=== PATIENT | male | born 1945 | race Caucasian/White ===

== ENCOUNTER 2016-09-21 23:26 | Emergency (ER) | payer MEDICARE, BC ==
[~2016-09-21 23:26] MED LIST: ASAB PO; COZ50 PO; IBU-200200 MG PO; NORCO1 TA1 PO; OXYCON10 PO; PCET PO; PRAVAC PO; V5 PO; ZIAC5 PO
[2016-09-22 01:14] LABS: BUN (BLOOD UREA NITROGEN) 18 MG/DL (6-23); CALCIUM, SERUM 8.8 MG/DL (8.5-10.4); CHLORIDE, SERUM 104 MMOL/L (96-112); CO2 (CARBON DIOXIDE) 27 MMOL/L (24-34); CREATININE 1.08 MG/DL (0.70-1.30); GFR AFRICAN AMERICAN 78 ML/MIN (>=60); GFR NON AFRICAN AMERICAN 68 ML/MIN (>=60); POTASSIUM, SERUM 4.1 MMOL/L (3.5-5.3); SODIUM, SERUM 140 MMOL/L (135-148)
[2016-09-22 01:16] LABS: GLUCOSE, SERUM 141 MG/DL (60-99)
[2016-09-22 01:51] LABS: ASCORBIC ACID (UR NOT ORDER) NEG (NEG); BILIRUBIN, URINE NEGATIVE (NEG); ER URINALYSIS TAT 0 Hrs 15 Mins; KETONE, URINE NEGATIVE (NEG); LEUKOCYTE ESTERASE(NOT OR SMALL (NEG); NITRITE (URINE) NEG (NEG); WBC (NOT ORDERED) (RFLEX) 14 (0-5)
== END 2016-09-22 01:39 | disposition home or self-care (01) ==
LOC: ER 23:26
PROVIDERS: Emergency Medicine
DX: R33.9 Retention of urine, unspecified (principal); R35.0 Frequency of micturition; I10 Essential (primary) hypertension
CPT/HCPCS: 80048; 81001; 87086; 99283

== ENCOUNTER 2016-12-21 05:32 | Inpatient (IN) | payer MEDICARE, BC ==
[2016-12-13 11:13] LABS: BASOPHILS 0.4 %; BASOPHILS ABSOLUTE 0.03 10/3/uL (0.0-0.16); EOSINOPHILS 2.4 %; EOSINOPHILS ABSOLUTE 0.19 10/3/uL (0.0-0.53); HEMATOCRIT 35.8 % (40.0-51.0); HEMOGLOBIN 11.3 g/dL (13.6-17.8); IMMATURE GRANULOCYTES 0.3 %; IMMATURE GRANULOCYTES ABSOLUTE 0.02 10/3/uL (0.0-0.11); LYMPHOCYTES 22.2 %; LYMPHOCYTES ABSOLUTE 1.76 10/3/uL (0.67-4.30); MANUAL DIFF NO %; MEAN CORPUS HGB CONC 31.6 g/dL (32.0-36.0); MEAN CORPUSCULAR HEMOGLOB 26.7 pg (26.0-34.0); MEAN CORPUSCULAR VOLUME 84.6 fL (80-100); MEAN PLATELET VOLUME 8.7 fL (9.2-13.0); MONOCYTES ABSOLUTE 1.19 10/3/uL (0.21-1.20); NEUTROPHILS 59.7 %; NEUTROPHILS ABSOLUTE 4.73 10/3/uL (2.02-8.40); PLATELET COUNT 370 10/3/uL (150-400); RED CELL COUNT 4.23 10/6/uL (4.7-6.1); WHITE BLOOD CELLS 7.9 10/3/uL (4.5-10.5)
[2016-12-13 11:22] LABS: INTERNATIONAL NORMAL RATI 1.1 UNITS (-); PARTIAL THROMBO TIME 30.4 SEC (22.5-37.2); PROTIME (NOT ORD) 13.8 SEC (12.0-14.5)
[2016-12-13 11:37] LABS: BUN (BLOOD UREA NITROGEN) 19 MG/DL (6-23); CALCIUM, SERUM 9.7 MG/DL (8.5-10.4); CHLORIDE, SERUM 105 MMOL/L (96-112); CO2 (CARBON DIOXIDE) 29 MMOL/L (24-34); GFR AFRICAN AMERICAN 86 ML/MIN (>=60); GFR NON AFRICAN AMERICAN 74 ML/MIN (>=60); GLUCOSE, SERUM 103 MG/DL (60-99); POTASSIUM, SERUM 4.1 MMOL/L (3.5-5.3); SODIUM, SERUM 141 MMOL/L (135-148)
[2016-12-13 11:53] LABS: ASCORBIC ACID (UR NOT ORDER) NEG (NEG); BILIRUBIN, URINE NEGATIVE (NEG); KETONE, URINE NEGATIVE (NEG); LEUKOCYTE ESTERASE(NOT OR NEG (NEG); WBC (NOT ORDERED) (RFLEX) 1 (0-5)
--- NOTE | ~2016-12-21 | OP ---
Record Of Operation [facility] [address] [place]. [address] NAME: FREDY HERRERA : 41 STATUS : ADM IN PAT#: [id number] AGE: 71 ADM/REG DATE : 12/21/16 MR#: [id number] REPORT SERV DATE: 12/21/16 DICTATED BY: JUVE PANDA DATE: 12/21/16 REPORT STATUS : Draft TRANSCRIBED BY: MODL DATE: 12/21/16 DATE OF PROCEDURE: 12/21/2016 PREOPERATIVE DIAGNOSIS: Left upper pole renal mass and retroperitoneal adenopathy. POSTOPERATIVE DIAGNOSIS: Left upper pole renal mass and retroperitoneal adenopathy. PROCEDURE: 1. Laparoscopic lysis of adhesions (25 minutes). 2. Laparoscopic left retroperitoneal node sampling. 3. Laparoscopic left partial nephrectomy converted to total nephrectomy. SURGEON: Juve Panda M.D. LINER INSTALLER: Lang Silveira. ANESTHESIA: General and local. ESTIMATED BLOOD LOSS: 250 mL. FLUID REPLACEMENT: Unknown. DRAINS: 15 mm Ewst drain in the left renal fossa and a 16-B[place] Panda catheter per urethra. INDICATIONS: 71-year-old male with a 4 cm left upper pole renal mass and retroperitoneal adenopathy noted on CT scan. TECHNIQUE: The patient was identified and brought to the operating room, administered general anesthetic agent by the Anesthesia Service. They had previously placed a TAP block. A 3 cm skin incision was made adjacent to the umbilicus on the left side after the patient was placed in the left flank position, prepped and draped in the usual sterile fashion. It was carried down to the rectus fascia. Holding sutures were placed in the rectus fascia. A transverse incision was made with an 11-blade scalpel. The muscles of the rectus were along the direction of fibers and the posterior sheath was identified and opened sharply. The peritoneum was identified and opened sharply. A balloon trocar was placed into the peritoneal space and a pneumoperitoneum was created by insufflating carbon dioxide. The abdominal pressure was raised to 15 mmHg and da Waqas XI laparoscope was placed through the port. I then placed four da Waqas XI ports along the midclavicular line on the left from about the ribcage down to the symphysis pubis. The patient had numerous adhesions between the omentum and the anterior abdominal wall from previous surgeries. Also had some adhesions around the umbilicus. Laparoscopically, I used the Harmonic scalpel and the scissors and took down all these adhesions. Approximately 25 minutes of time was spent taking down adhesions. I then opened the avascular line of Toldt from the splenic flexure down to the iliac vessels Record Of Operation [facility] [address] [place]. [address] NAME: FREDY HERRERA : 41 STATUS : ADM IN PAT#: [id number] AGE: 71 ADM/REG DATE : 12/21/16 MR#: [id number] REPORT SERV DATE: 12/21/16 DICTATED BY: JUVE PNADA DATE: 12/21/16 REPORT STATUS : Draft TRANSCRIBED BY: MODMaureen DATE: 12/21/16 and mobilized the left colon medially to expose the left retroperitoneum. The left psoas muscle, ureter, and gonadal vessels were identified. They were elevated. I dissected along the psoas muscle up to the renal hilum. I then developed the plane between the spleen and the upper pole of the kidney. The renal hilum was encountered. It appeared to be somewhat large retroperitoneal nodes displacing the hilum. I dissected out these lymph nodes using locking clips for lymphostasis and hemostasis. I collected them and sent them for frozen section. Three lymph nodes were identified were negative for any malignancy. I then opened Gerota's fascia and exposed the upper pole of the kidney. I was unable to separate the upper pole tumor from Gerota's fascia at the very superior portion. This also came encroached upon the hilum. I sacrificed upper pole left renal artery by securing it with metallic clips. Still had perfusion to the tumor and it did have an endophytic component as well as an exophytic component. At this point, I felt I needed take wider margins and took the entire left kidney. I therefore isolated the remainder of the renal hilum. A 10 mm metallic clip was placed across the renal artery and then I used the laparoscopic LAVINIA stapling device across the renal artery and distal to the 1st clip and across the renal artery and vein. I then widely excised the upper pole taking some of the left adrenal gland with it. Locking clips were used for lymphostasis and hemostasis. I then completed the nephrectomy by taking down its lateral attachments isolating the ureter and gonadal vessels clamping them distally and then transecting it proximally. The specimen was placed in two specimen retrieval bag and held for later retrieval. I lowered the abdominal pressure down to 5 mmHg and irrigated the renal fossa copiously. No bleeding was noted. Fastidious hemostasis was achieved. I transferred the string of the specimen bag out through the most inferior XI port. I undocked the da Waqas robot. I placed a 15-mm West drain through the 2nd robot arm port. The port was removed, and the drain was sutured to skin with 2-0 Prolene. I removed all of the ports under low pressure. No port site bleeding was noted. The most inferior port where the specimen string was coming out was adjacent to a recent inguinal hernia repair. I just opened through the previous scar and delivered the specimen out through that wound. I closed the transversus abdominis muscle with a running 0 Vicryl suture. I then closed the external oblique with running 0 PDS. The subcutaneous tissues of all ports were irrigated copiously. I closed the balloon port with [id number] 0 Vicryl suture. I then closed the skin of all ports with 4-0 Monocryl. Dressings were applied. The patient was awakened and taken to the recovery unit in stable and satisfactory conditions. Please note that a 16-B[place]wanan Panda catheter had been passed to the bladder at the beginning the case. PF/FELTON Juve Panda M.D. / [id number] Record Of [address] [address] NAME: FREDY HERRERA : 41 STATUS : ADM IN PAT#: [id number] AGE: 71 ADM/REG DATE : 12/21/16 MR#: [id number] REPORT SERV DATE: 12/21/16 DICTATED BY: JUVE PANDA DATE: 12/21/16 REPORT STATUS : Draft TRANSCRIBED BY: MODL DATE: 12/21/16 CC: Juve Panda M.D.
--- NOTE | ~2016-12-21 | HP ---
History And Physical [facility] [address] [place]. [address] NAME: FREDY HERRERA : 41 STATUS : PRE IN PAT#: [id number] AGE: 71 ADM/REG DATE : MR#: [id number] REPORT SERV DATE: 12/20/16 DICTATED BY: JUVE PANDA DATE: 12/20/16 REPORT STATUS : Draft TRANSCRIBED BY: MODL DATE: 12/20/16 DATE OF ADMISSION: 12/21/2016 CHIEF COMPLAINT: Left pole renal mass with adenopathy. HISTORY OF PRESENT ILLNESS: A 71-year-old white male had a chronic cough, and a CT scan of the chest revealed a left upper pole renal mass. He had a dedicated CT scan of the abdomen and pelvis revealing a 4 cm infiltrative left upper pole solid renal mass that enhances in at least a 1.2 cm aortic node. The CT scan of the chest revealed nothing. This is felt to be a renal cell carcinoma. He is going to undergo surgical removal today. The patient denies any gross hematuria, weight loss, or abdominal pain or flank pain. PAST MEDICAL HISTORY: Hypertension and dyslipidemia. PAST SURGICAL HISTORY: Shoulder surgery, both left and right appendectomy, inguinal herniorrhaphy, tonsillectomy, and neck surgery. MEDICATIONS: Isopropyl/hydrochlorothiazide; aspirin, on hold; pravastatin; losartan; loratadine; Robitussin; and cough drops. ALLERGIES: NONE. SOCIAL HISTORY: Never smoked. Rare alcohol use. FAMILY HISTORY: Negative for any renal diseases or tumor. REVIEW OF SYSTEMS: Wears glasses, back pain, arthritis, chronic cough, and hypertension. PHYSICAL EXAMINATION: GENERAL: Shows a well-developed, well-nourished male, in no acute distress. VITAL SIGNS: Weight estimated 180 pounds, afebrile. His vital signs are stable. NEURO: He is awake, alert, and oriented x3. HEENT: Sclerae anicteric. NECK: Supple. No cervical adenopathy. ABDOMEN: Soft and nontender. No palpable abdominal masses. No hepatosplenomegaly. : Penis normal. Testes descended. No inguinal hernia. Prostate is very large with a nodule at the right base. EXTREMITIES: Lower extremities, no deformities. IMPRESSION: 1. Left upper pole infiltrated renal mass, probably a renal cell carcinoma with potential adenopathy. 2. Nodular prostate. PLAN: Laparoscopic robot-assisted partial left nephrectomy with lymph node sampling, History And Physical [address] [address] NAME: FREDY HERRERA : 41 STATUS : PRE IN PAT#: [id number] AGE: 71 ADM/REG DATE : MR#: [id number] REPORT SERV DATE: 12/20/16 DICTATED BY: JUVE PANDA DATE: 12/20/16 REPORT STATUS : Draft TRANSCRIBED BY: MODL DATE: 12/20/16 possible complete nephrectomy or open nephrectomy. The potential complications of bleeding; infection; and injury to adjacent structures distally and diaphragm, pleura, lung, liver, pancreas, intestines, colon, stomach, blood vessels and nerves; as well as prolonged urinary fistulae and renal failure were discussed with the patient. He manually and verbally consents. PF/MODL Juve Panda M.D. / [id number] CC: Enriqueta Vu M.D.
[2016-12-22 04:34] LABS: HEMOGLOBIN 9.6 g/dL (13.6-17.8)
[2016-12-22 04:44] LABS: BUN (BLOOD UREA NITROGEN) 21 MG/DL (6-23); CHLORIDE, SERUM 107 MMOL/L (96-112); CO2 (CARBON DIOXIDE) 29 MMOL/L (24-34); POTASSIUM, SERUM 4.4 MMOL/L (3.5-5.3); SODIUM, SERUM 140 MMOL/L (135-148)
[2016-12-22 04:48] LABS: GFR AFRICAN AMERICAN 49 ML/MIN (>=60); GFR NON AFRICAN AMERICAN 42 ML/MIN (>=60); GLUCOSE, SERUM 179 MG/DL (60-99)
[2016-12-22 04:49] LABS: CALCIUM, SERUM 8.5 MG/DL (8.5-10.4)
== END 2016-12-22 22:18 | disposition home or self-care (01) | DRG 658 ==
LOC: SDC/OF 05:32 → 4SO 15:11
PROVIDERS: Urology
PROC: 0GB24ZZ Excision of Left Adrenal Gland, Percutaneous Endoscopic Approach (ICD-10-PCS; principal; 2016-12-21 06:30)
PROC: 0TT14ZZ Resection of Left Kidney, Percutaneous Endoscopic Approach (ICD-10-PCS; principal; 2016-12-21 06:30)
PROC: 8E0W4CZ Robotic Assisted Procedure of Trunk Region, Percutaneous Endoscopic Approach (ICD-10-PCS; principal; 2016-12-21 06:30)
PROC: 0TT74ZZ Resection of Left Ureter, Percutaneous Endoscopic Approach (ICD-10-PCS; principal; 2016-12-21 06:30)
PROC: 07BC4ZX Excision of Pelvis Lymphatic, Percutaneous Endoscopic Approach, Diagnostic (ICD-10-PCS; principal; 2016-12-21 06:30)
PROC: 0DNS4ZZ (ICD-10-PCS; principal; 2016-12-21 06:30)
DX: C65.2 Malignant neoplasm of left renal pelvis (principal); I10 Essential (primary) hypertension; R59.0 Localized enlarged lymph nodes; K66.0 Peritoneal adhesions (postprocedural) (postinfection); G47.33 Obstructive sleep apnea (adult) (pediatric); E78.5 Hyperlipidemia, unspecified; Z79.82 Long term (current) use of aspirin; M19.90 Unspecified osteoarthritis, unspecified site; R05 Cough; N40.2 Nodular prostate without lower urinary tract symptoms
CPT/HCPCS: 80048; 81001; 83735; 85014; 85018; 85025; 85610; 85730; 88307; 88313; 88331; 88332; 93005; A9270-GY; J0690; J2250; J2370; J2405; J2710; J2795; J3010